=== PATIENT | male | born 1955 | race African-American/Black ===

== ENCOUNTER 2019-02-27 18:32 | Inpatient (IN) | payer MEDICAID ==
[~2019-02-27] VITALS: Ht 193 cm; Wt 117.3 kg
[2019-02-27] MEDS ORDERED: SODIUM CHLORIDE 0.9% 1,000 ML IV ONE (20:06)
[2019-02-27 20:16] LABS: CLARITY URINE CLEAR (CLEAR); COLOR URINE YELLOW (YELLOW); KETONES URINE 4+ (NEGATIVE); LEUKOCYTE ESTERASE URINE NEGATIVE (NEGATIVE); NITRITE URINE NEGATIVE (NEGATIVE); OCCULT BLOOD URINE NEGATIVE (NEGATIVE); PROTEIN URINE TRACE (NEGATIVE); SPECIFIC GRAVITY URINE 1.042 (1.005-1.030); UROBILINOGEN URINE 0.2 E.U./dL (0.2-1.0)
[2019-02-27 20:32] LABS: *AMPHETAMINES SCREEN URINE NEGATIVE (NEGATIVE); *BARBITURATES SCREEN URINE NEGATIVE (NEGATIVE); *BENZODIAZEPINES SCREEN URINE NEGATIVE (NEGATIVE); *COCAINE SCREEN URINE NEGATIVE (NEGATIVE); METHADONE URINE SCREEN NEGATIVE (NEGATIVE)
[2019-02-27 20:33] LABS: CANNABINOID URINE SCREEN NEGATIVE (NEGATIVE); OPIATES URINE SCREEN NEGATIVE (NEGATIVE); PHENCYCLIDINE URINE SCREEN NEGATIVE (NEGATIVE)
[2019-02-27 20:39] LABS: CHLORIDE 102 mEq/L (98-107)
[2019-02-27 20:40] LABS: INR 1.3; PROTHROMBIN TIME 12.8 sec (9.6-11.0)
[2019-02-27 20:43] LABS: ETHANOL BLOOD < 10 mg/dL
[2019-02-27 21:40] LABS: BASOPHILS % 0.7 % (0.0-2.0); EOSINOPHILS % 0.8 % (0.0-5.0); HEMATOCRIT. 43.1 % (42.0-52.0); HEMOGLOBIN. 14.4 g/dL (14.0-18.0); MEAN CORPUSCULAR HEMOGLOBIN 28.5 pg (28.0-32.0); MEAN CORPUSCULAR VOLUME 85.7 fL (80.0-94.0); MEAN PLATELET VOLUME 9.9 fl (7.4-10.4); MONOCYTES % 10.3 % (2.0-8.0); NEUTROPHILS % 54.2 % (40.0-76.0); PLATELET 251 x1000/uL (130-400); RED BLOOD CELL COUNT 5.03 mill/uL (4.7-6.1); RED CELL DISTRIBUTION WIDTH 13.7 % (11.6-14.6)
[2019-02-27] MEDS ORDERED: CLONIDINE 0.1MG TABLET PO PRN (23:45)
[2019-02-27] MEDS ORDERED: ACETAMINOPHEN 325MG TABLET PO PRN (23:45)
[2019-02-27] MEDS ORDERED: DOCUSATE SODIUM 100MG CAPSULE PO PRN (23:45)
[2019-02-27] MEDS ORDERED: GUAIFENESIN 200MG/10ML SUGAR FREE UDC PO PRN (23:45)
[2019-02-27] MEDS ORDERED: ENOXAPARIN 40MG/0.4ML SYR SUBCUT SCH (23:45)
[2019-02-27] MEDS ORDERED: HYDROCODONE/ACETAMINOPHEN 5/325MG TABLET PO PRN (23:45)
[2019-02-27] MEDS ORDERED: MAGNESIUM/ALUMINUM HYDROXIDE/SIMETHICONE 30ML UDC PO PRN (23:45)
[2019-02-27] MEDS ORDERED: ONDANSETRON HCL 4MG/2ML INJ IV PRN (23:45)
[2019-02-28] VITALS (7 sets, daily range): BP systolic 148–193; BP diastolic 58–106
[2019-02-28] MEDS ORDERED: DEXTROSE 50% WATER 50ML SYRINGE IV PRN (01:00)
[2019-02-28] MEDS: BLOOD SUGAR DIAGNOSTIC STRIP TEST SCH ×5 (01:13→21:54)
[2019-02-28] MEDS: INSULIN LISPRO 100 UNITS/ML SUBCUT SCH ×5 (01:29→21:58)
[2019-02-28] MEDS: SODIUM CHLORIDE 0.45% 1,000 ML IV SCH (01:34)
[2019-02-28] MEDS ORDERED: HYDRALAZINE HCL 10MG TABLET PO SCH (06:00)
[2019-02-28 06:36] LABS: BASOPHILS % 0.7 % (0.0-2.0); EOSINOPHILS % 1.7 % (0.0-5.0); HEMATOCRIT. 38.1 % (42.0-52.0); LYMPHOCYTES % 40.8 % (20.0-50.0); MEAN CORPUSCULAR HEMOGLOBIN 28.6 pg (28.0-32.0); MEAN CORPUSCULAR VOLUME 83.5 fL (80.0-94.0); MEAN PLATELET VOLUME 9.7 fl (7.4-10.4); MONOCYTES % 11.1 % (2.0-8.0); NEUTROPHILS % 45.7 % (40.0-76.0); PLATELET 270 x1000/uL (130-400); RED BLOOD CELL COUNT 4.56 mill/uL (4.7-6.1); RED CELL DISTRIBUTION WIDTH 13.7 % (11.6-14.6)
[2019-02-28 07:50] LABS: CHLORIDE 109 mEq/L (98-107)
[2019-02-28] MEDS: AMLODIPINE 10MG TABLET PO SCH (09:07)
[2019-02-28] MEDS: ENOXAPARIN 30MG/0.3ML SYR SUBCUT SCH ×2 (09:08→21:56)
[2019-02-28] MEDS ORDERED: POTASSIUM CHLORIDE 20MEQ TABLET SR PO NR (09:30)
[2019-02-28] MEDS: HYDRALAZINE HCL 25MG TABLET PO SCH ×2 (15:23→21:56)
[2019-03-01] VITALS (8 sets, daily range): BP systolic 148–174; BP diastolic 72–98
[2019-03-01] MEDS: SODIUM CHLORIDE 0.45% 1,000 ML IV SCH ×4 (03:48→16:18)
[2019-03-01] MEDS: BLOOD SUGAR DIAGNOSTIC STRIP TEST SCH ×4 (06:04→21:10)
[2019-03-01] MEDS: HYDRALAZINE HCL 25MG TABLET PO SCH ×3 (06:10→21:32)
[2019-03-01 06:14] LABS: EOSINOPHILS % 2.1 % (0.0-5.0); HEMATOCRIT. 39.3 % (42.0-52.0); HEMOGLOBIN. 13.3 g/dL (14.0-18.0); LYMPHOCYTES % 43.4 % (20.0-50.0); MEAN CORPUSCULAR HEMOGLOBIN 28.7 pg (28.0-32.0); MEAN CORPUSCULAR VOLUME 84.8 fL (80.0-94.0); MEAN PLATELET VOLUME 9.7 fl (7.4-10.4); MONOCYTES % 10.9 % (2.0-8.0); NEUTROPHILS % 42.6 % (40.0-76.0); PLATELET 244 x1000/uL (130-400); RED BLOOD CELL COUNT 4.64 mill/uL (4.7-6.1)
[2019-03-01 08:00] LABS: CHLORIDE 106 mEq/L (98-107)
[2019-03-01] MEDS: ENOXAPARIN 30MG/0.3ML SYR SUBCUT SCH ×2 (08:43→21:33)
[2019-03-01] MEDS: AMLODIPINE 10MG TABLET PO SCH (08:43)
[2019-03-01] MEDS: INSULIN LISPRO 100 UNITS/ML SUBCUT SCH ×4 (08:44→21:45)
[2019-03-01] MEDS: CLOPIDOGREL 75MG TABLET PO SCH (10:30)
[2019-03-01] MEDS ORDERED: INSULIN LISPRO 100 UNITS/ML SUBCUT NR (13:15)
[2019-03-01] MEDS ORDERED: ATORVASTATIN CALCIUM 40MG TABLET PO SCH (21:00)
[2019-03-02] VITALS: BP 187/99
[2019-03-02 04:00] VITALS: BP 154/91
[2019-03-02] MEDS: BLOOD SUGAR DIAGNOSTIC STRIP TEST SCH ×2 (06:40→12:11)
[2019-03-02] MEDS: HYDRALAZINE HCL 25MG TABLET PO SCH ×2 (06:51→13:39)
[2019-03-02] MEDS: SODIUM CHLORIDE 0.45% 1,000 ML IV SCH (06:52)
[2019-03-02 08:00] VITALS: BP 144/92
[2019-03-02] MEDS: AMLODIPINE 10MG TABLET PO SCH (08:32)
[2019-03-02] MEDS: ENOXAPARIN 30MG/0.3ML SYR SUBCUT SCH (08:32)
[2019-03-02] MEDS: CLOPIDOGREL 75MG TABLET PO SCH (08:32)
[2019-03-02] MEDS: INSULIN LISPRO 100 UNITS/ML SUBCUT SCH ×2 (08:35→13:40)
[2019-03-02 12:00] VITALS: BP 146/64
[2019-03-02 12:14] VITALS: BP 146/64
== END 2019-03-02 15:12 | disposition home or self-care (01) | DRG 45 ==
LOC: ER 18:32 → EDBEDREQTM 22:53 → EDBEDREQ 22:53 → ENRESERV 23:15 → SUPCPDRO 23:32 → 7WST 02-28 00:29
PROVIDERS: ADMIT Hospitalist; ATTEND Hospitalist
DX: I63.9 Cerebral infarction, unspecified (principal); G93.40 Encephalopathy, unspecified; E11.65 Type 2 diabetes mellitus with hyperglycemia; I69.351 Hemiplegia and hemiparesis following cerebral infarction affecting right dominant side; I10 Essential (primary) hypertension
CPT/HCPCS: 36415; 70551; 71045; 80305; 80320; 82962; 83036; 83735; 84484; 92523; 92610; 93005; 93880; 93970; 96372; 97116; 97162; 97166; 99285; J1650; J1815; J7030; G0480

== ENCOUNTER 2019-03-18 00:43 | Inpatient (IN) | payer MEDICAID ==
[~2019-03-18] VITALS: Ht 180.3 cm; Wt 122.2 kg
[2019-03-18] MEDS ORDERED: ONDANSETRON HCL 4MG/2ML INJ IV STA (01:17)
[2019-03-18 01:53] LABS: BASOPHILS % 0.5 % (0.0-2.0); EOSINOPHILS % 0.1 % (0.0-5.0); HEMATOCRIT. 45.3 % (42.0-52.0); HEMOGLOBIN. 15.1 g/dL (14.0-18.0); LYMPHOCYTES % 12.5 % (20.0-50.0); MEAN CORPUSCULAR HEMOGLOBIN 28.3 pg (28.0-32.0); MEAN CORPUSCULAR VOLUME 85.1 fL (80.0-94.0); MEAN PLATELET VOLUME 9.8 fl (7.4-10.4); MONOCYTES % 8.7 % (2.0-8.0); NEUTROPHILS % 78.2 % (40.0-76.0); PLATELET 257 x1000/uL (130-400); RED BLOOD CELL COUNT 5.33 mill/uL (4.7-6.1); RED CELL DISTRIBUTION WIDTH 14.1 % (11.6-14.6)
[2019-03-18 02:00] LABS: CHLORIDE 105 mEq/L (98-107); INR 1.1; PROTHROMBIN TIME 11.4 sec (9.6-11.0)
[2019-03-18 02:09] LABS: CREATINE KINASE 79 IU/L (39-308)
[2019-03-18] MEDS ORDERED: INSULIN REGULAR (HUMULIN R) 300UNITS/3ML SUBCUT ONE (03:00)
[2019-03-18] MEDS ORDERED: DOCUSATE SODIUM 100MG CAPSULE PO PRN (06:45)
[2019-03-18] MEDS ORDERED: GUAIFENESIN 200MG/10ML SUGAR FREE UDC PO PRN (06:45)
[2019-03-18] MEDS ORDERED: DIPHENHYDRAMINE 50MG/ML VIAL IV PRN (06:45)
[2019-03-18] MEDS ORDERED: HYDROCODONE/ACETAMINOPHEN 10/325MG TABLET PO PRN (06:45)
[2019-03-18] MEDS ORDERED: IPRATROPIUM/ALBUTEROL 0.5-3(2.5)MG/3ML NEB INH PRN (06:45)
[2019-03-18] MEDS ORDERED: LORAZEPAM 2MG/ML CPJ IV PRN (06:45)
[2019-03-18] MEDS ORDERED: ACETAMINOPHEN 325MG TABLET PO PRN (06:45)
[2019-03-18] MEDS ORDERED: HYDROMORPHONE HCL/PF 2MG/ML CPJ IV PRN (06:45)
[2019-03-18] MEDS ORDERED: DEXTROSE 50% WATER 50ML SYRINGE IV PRN (06:45)
[2019-03-18] MEDS ORDERED: MAGNESIUM/ALUMINUM HYDROXIDE/SIMETHICONE 30ML UDC PO PRN (06:45)
[2019-03-18] MEDS: HYDRALAZINE 20MG/ML VIAL IV PRN (07:35)
[2019-03-18 08:53] VITALS: BP 140/89
[2019-03-18] MEDS ORDERED: NA PHOS,M-B/NA PHOS,DI-BA ENEMA 118ML PR PRN (09:00)
[2019-03-18] MEDS: ASPIRIN 81MG EC TABLET PO SCH (09:00)
[2019-03-18] MEDS: ENOXAPARIN 30MG/0.3ML SYR SUBCUT SCH ×2 (09:15→21:02)
[2019-03-18] MEDS: BLOOD SUGAR DIAGNOSTIC STRIP TEST SCH ×3 (11:30→21:04)
[2019-03-18 11:33] VITALS: BP 155/85
[2019-03-18] MEDS: INSULIN LISPRO 100 UNITS/ML SUBCUT SCH ×4 (12:20→21:05)
[2019-03-18] MEDS: SODIUM CHLORIDE 0.9% INJ 3ML FLUSH IVF SCH ×2 (13:27→21:04)
[2019-03-18] MEDS ORDERED: METOCLOPRAMIDE HCL 10MG/2ML VIAL IV PRN (13:30)
[2019-03-18] MEDS: ONDANSETRON HCL 4MG/2ML INJ IV PRN (13:35)
[2019-03-18 14:00] VITALS: BP 152/90
[2019-03-18] MEDS: DEXT 5%/0.45% NACL 1000ML 1,000 ML IV SCH (14:13)
[2019-03-18 16:00] VITALS: BP 147/105
[2019-03-18 16:09] LABS: HEMATOCRIT 44.8 % (42.0-52.0); HEMOGLOBIN 15.4 g/dL (14.0-18.0)
[2019-03-18 16:23] LABS: CREATINE KINASE 242 IU/L (39-308)
[2019-03-18 16:25] LABS: CREATINE KINASE MB FRACTION 1.3 ng/mL (0.5-3.6)
[2019-03-18] MEDS ORDERED: POTASSIUM CHLORIDE 20MEQ TABLET SR PO NR ×2 (17:27→20:00)
[2019-03-18 18:00] VITALS: BP 167/98
[2019-03-18] MEDS: PANTOPRAZOLE SODIUM 40 MG/VIAL IV SCH (19:29)
[2019-03-18 20:00] VITALS: BP 150/96
[2019-03-18] MEDS: ATORVASTATIN CALCIUM 40MG TABLET PO SCH (21:15)
[2019-03-19] VITALS (10 sets, daily range): BP systolic 123–158; BP diastolic 53–103
[2019-03-19 00:12] LABS: CREATINE KINASE MB FRACTION 1.6 ng/mL (0.5-3.6)
[2019-03-19] MEDS: CLONIDINE 0.1MG TABLET PO PRN (00:15)
[2019-03-19] MEDS: BLOOD SUGAR DIAGNOSTIC STRIP TEST SCH ×4 (05:33→21:51)
[2019-03-19] MEDS: SODIUM CHLORIDE 0.9% INJ 3ML FLUSH IVF SCH ×3 (05:33→21:51)
[2019-03-19] MEDS: DEXT 5%/0.45% NACL 1000ML 1,000 ML IV SCH ×2 (05:34→16:30)
[2019-03-19] MEDS: INSULIN LISPRO 100 UNITS/ML SUBCUT SCH ×4 (05:40→21:52)
[2019-03-19 06:33] LABS: BASOPHILS % 0.5 % (0.0-2.0); EOSINOPHILS % 0.4 % (0.0-5.0); HEMATOCRIT. 42.2 % (42.0-52.0); HEMOGLOBIN. 14.4 g/dL (14.0-18.0); MEAN CORPUSCULAR HEMOGLOBIN 28.4 pg (28.0-32.0); MEAN CORPUSCULAR VOLUME 83.3 fL (80.0-94.0); MEAN PLATELET VOLUME 9.7 fl (7.4-10.4); MONOCYTES % 12.5 % (2.0-8.0); NEUTROPHILS % 61.6 % (40.0-76.0); PLATELET 244 x1000/uL (130-400); RED BLOOD CELL COUNT 5.07 mill/uL (4.7-6.1); RED CELL DISTRIBUTION WIDTH 14.4 % (11.6-14.6)
[2019-03-19 07:26] LABS: CHLORIDE 111 mEq/L (98-107)
[2019-03-19 07:48] LABS: LDL CHOLESTEROL 117 mg/dL (5-100)
[2019-03-19 07:49] LABS: HDL CHOLESTEROL 41 mg/dL (40-59)
[2019-03-19] MEDS: PANTOPRAZOLE SODIUM 40 MG/VIAL IV SCH ×2 (08:38→21:50)
[2019-03-19] MEDS: ASPIRIN 81MG EC TABLET PO SCH (08:39)
[2019-03-19] MEDS: ENOXAPARIN 30MG/0.3ML SYR SUBCUT SCH ×2 (08:39→21:00)
[2019-03-19] MEDS ORDERED: POTASSIUM CHLORIDE 20MEQ TABLET SR PO NR (09:00)
[2019-03-19] MEDS ORDERED: POTASSIUM CHLORIDE INJ 40 MEQ in DEXT 5% WATER 250 ML IV SCH (11:00)
[2019-03-19] MEDS: ONDANSETRON HCL 4MG/2ML INJ IV PRN (11:32)
[2019-03-19] MEDS: ATORVASTATIN CALCIUM 40MG TABLET PO SCH (21:00)
[2019-03-20] VITALS (14 sets, daily range): BP systolic 132–162; BP diastolic 77–119
[2019-03-20] MEDS: HYDRALAZINE 20MG/ML VIAL IV PRN ×2 (04:41→14:49)
[2019-03-20] MEDS: SODIUM CHLORIDE 0.9% INJ 3ML FLUSH IVF SCH ×3 (06:18→21:43)
[2019-03-20] MEDS: BLOOD SUGAR DIAGNOSTIC STRIP TEST SCH ×4 (06:18→21:38)
[2019-03-20] MEDS: DEXT 5%/0.45% NACL 1000ML 1,000 ML IV SCH ×2 (06:19→21:42)
[2019-03-20 07:26] LABS: HEMATOCRIT. 43.7 % (42.0-52.0); HEMOGLOBIN. 14.7 g/dL (14.0-18.0); MEAN CORPUSCULAR HEMOGLOBIN 28.6 pg (28.0-32.0); MEAN CORPUSCULAR VOLUME 84.9 fL (80.0-94.0); RED BLOOD CELL COUNT 5.15 mill/uL (4.7-6.1); RED CELL DISTRIBUTION WIDTH 14.8 % (11.6-14.6)
[2019-03-20 07:28] LABS: CHLORIDE 111 mEq/L (98-107)
[2019-03-20] MEDS: ENOXAPARIN 30MG/0.3ML SYR SUBCUT SCH (09:00)
[2019-03-20] MEDS: ASPIRIN 81MG EC TABLET PO SCH (09:00)
[2019-03-20] MEDS: PANTOPRAZOLE SODIUM 40 MG/VIAL IV SCH ×2 (09:04→21:42)
[2019-03-20] MEDS: INSULIN LISPRO 100 UNITS/ML SUBCUT SCH ×4 (09:05→21:43)
[2019-03-20] MEDS ORDERED: POTASSIUM CHLORIDE INJ 40 MEQ in DEXT 5% WATER 250 ML IV NR (14:30)
[2019-03-20] MEDS ORDERED: ATOR40TA70 MT (17:16)
[2019-03-20] MEDS ORDERED: OMEP20CA5 MT (17:16)
[2019-03-20] MEDS ORDERED: NPH,100V SQ (17:16)
[2019-03-20] MEDS ORDERED: IPRA42SP BOTHNSTRLS (17:16)
[2019-03-20] MEDS ORDERED: INSU100V3 SUBCUT (17:16)
[2019-03-20] MEDS ORDERED: HYDR-4134 MT (17:16)
[2019-03-20] MEDS ORDERED: ASPI-1158 MT (17:16)
[2019-03-20] MEDS ORDERED: ATEN100T MT (17:16)
[2019-03-20] MEDS ORDERED: ATOR-2 MT (17:16)
[2019-03-20] MEDS ORDERED: GABA-531 MT (17:16)
[2019-03-20] MEDS ORDERED: FURO20TA4 MT (17:16)
[2019-03-20] MEDS ORDERED: CLOP75TA33 MT (17:16)
[2019-03-20] MEDS ORDERED: LORA10TA7 MT (17:16)
[2019-03-20] MEDS ORDERED: AMLO10TA80 MT (17:16)
[2019-03-20] MEDS ORDERED: LOSA50TA41 MT (17:16)
[2019-03-20] MEDS ORDERED: OR220 MT (17:16)
[2019-03-20] MEDS ORDERED: METOPROLOL TARTRATE 50MG TABLET PO SCH (21:00)
[2019-03-20] MEDS: ATORVASTATIN CALCIUM 40MG TABLET PO SCH (21:36)
[2019-03-20] MEDS: METOPROLOL TARTRATE 25MG TABLET PO SCH (21:38)
[2019-03-21] VITALS (14 sets, daily range): BP systolic 137–175; BP diastolic 80–106
[2019-03-21] MEDS: HYDRALAZINE 20MG/ML VIAL IV PRN (04:37)
[2019-03-21] MEDS: BLOOD SUGAR DIAGNOSTIC STRIP TEST SCH ×3 (05:38→18:34)
[2019-03-21] MEDS: SODIUM CHLORIDE 0.9% INJ 3ML FLUSH IVF SCH ×3 (05:39→22:40)
[2019-03-21 06:21] LABS: CHLORIDE 111 mEq/L (98-107)
[2019-03-21] MEDS: INSULIN LISPRO 100 UNITS/ML SUBCUT SCH ×3 (06:31→18:32)
[2019-03-21 06:33] LABS: BASOPHILS % 0.1 % (0.0-2.0); HEMATOCRIT. 42.5 % (42.0-52.0); HEMOGLOBIN. 14.2 g/dL (14.0-18.0); LYMPHOCYTES % 7.9 % (20.0-50.0); MEAN CORPUSCULAR HEMOGLOBIN 28.1 pg (28.0-32.0); MEAN CORPUSCULAR VOLUME 84.1 fL (80.0-94.0); MONOCYTES % 8.7 % (2.0-8.0); NEUTROPHILS % 83.3 % (40.0-76.0); PLATELET 221 x1000/uL (130-400); RED BLOOD CELL COUNT 5.05 mill/uL (4.7-6.1); RED CELL DISTRIBUTION WIDTH 14.7 % (11.6-14.6)
[2019-03-21] MEDS: PANTOPRAZOLE SODIUM 40 MG/VIAL IV SCH ×2 (08:57→20:46)
[2019-03-21] MEDS: METOPROLOL TARTRATE 25MG TABLET PO SCH ×2 (08:58→20:47)
[2019-03-21] MEDS: ASPIRIN 81MG EC TABLET PO SCH (08:58)
[2019-03-21] MEDS ORDERED: POTASSIUM CHLORIDE INJ 40 MEQ in DEXT 5% WATER 250 ML IV SCH (10:00)
[2019-03-21] MEDS: DEXT 5%/0.45% NACL 1000ML 1,000 ML IV SCH (10:28)
[2019-03-21] MEDS ORDERED: BLOOD SUGAR DIAGNOSTIC STRIP TEST SCH (11:00)
[2019-03-21 12:29] LABS: CLARITY URINE CLEAR (CLEAR); COLOR URINE YELLOW (YELLOW); KETONES URINE 3+ (NEGATIVE); LEUKOCYTE ESTERASE URINE NEGATIVE (NEGATIVE); NITRITE URINE NEGATIVE (NEGATIVE); OCCULT BLOOD URINE NEGATIVE (NEGATIVE); PROTEIN URINE TRACE (NEGATIVE); SPECIFIC GRAVITY URINE 1.043 (1.005-1.030)
[2019-03-21] MEDS: PIPERACILLIN/TAZ 3.375G PREMIX 50 ML IV SCH ×2 (12:45→18:34)
[2019-03-21] MEDS ORDERED: VANCOMYCIN 1,500 MG in DEXT 5% WATER 250 ML IV SCH (13:00)
[2019-03-21] MEDS ORDERED: VANCOMYCIN 2,000 MG in DEXT 5% WATER 500 ML IV NR ×2 (14:00→16:00)
[2019-03-21] MEDS: ATORVASTATIN CALCIUM 40MG TABLET PO SCH (20:46)
[2019-03-21] MEDS: INSULIN GLARGINE UD 100 UNITS/ML SYR SUBCUT SCH (22:43)
[2019-03-22] VITALS (13 sets, daily range): BP systolic 137–186; BP diastolic 71–96
[2019-03-22] MEDS: BLOOD SUGAR DIAGNOSTIC STRIP TEST SCH ×5 (00:29→23:43)
[2019-03-22] MEDS: PIPERACILLIN/TAZ 3.375G PREMIX 50 ML IV SCH ×5 (00:29→23:51)
[2019-03-22] MEDS: INSULIN LISPRO 100 UNITS/ML SUBCUT SCH ×5 (00:40→23:52)
[2019-03-22] MEDS ORDERED: VANCOMYCIN 1,750 MG in DEXT 5% WATER 500 ML IV SCH (02:00)
[2019-03-22] MEDS: HYDRALAZINE 20MG/ML VIAL IV PRN (04:21)
[2019-03-22] MEDS: VANCOMYCIN 1,750 MG in DEXT 5% WATER 500 ML IV SCH ×2 (04:21→15:40)
[2019-03-22] MEDS: SODIUM CHLORIDE 0.9% INJ 3ML FLUSH IVF SCH ×3 (05:45→21:20)
[2019-03-22] MEDS: DEXT 5%/0.45% NACL 1000ML 1,000 ML IV SCH ×3 (08:43→23:51)
[2019-03-22] MEDS: ASPIRIN 81MG EC TABLET PO SCH (08:43)
[2019-03-22] MEDS: METOPROLOL TARTRATE 25MG TABLET PO SCH ×2 (08:43→21:20)
[2019-03-22] MEDS: PANTOPRAZOLE SODIUM 40 MG/VIAL IV SCH ×2 (08:43→21:20)
[2019-03-22] MEDS: INSULIN GLARGINE UD 100 UNITS/ML SYR SUBCUT SCH ×2 (09:22→21:22)
[2019-03-22] MEDS: METOCLOPRAMIDE HCL 10MG/2ML VIAL IV SCH ×3 (12:14→23:51)
[2019-03-22 12:15] LABS: HEMATOCRIT. 42.1 % (42.0-52.0); HEMOGLOBIN. 13.9 g/dL (14.0-18.0); MEAN CORPUSCULAR HEMOGLOBIN 28.3 pg (28.0-32.0); MEAN CORPUSCULAR VOLUME 85.5 fL (80.0-94.0); RED BLOOD CELL COUNT 4.92 mill/uL (4.7-6.1); RED CELL DISTRIBUTION WIDTH 14.7 % (11.6-14.6)
[2019-03-22 12:42] LABS: CHLORIDE 109 mEq/L (98-107)
[2019-03-22 13:12] LABS: PLATELET 160 x1000/uL (130-400); PLATELET ESTIMATE NORMAL
[2019-03-22] MEDS ORDERED: POTASSIUM CHLORIDE INJ 40 MEQ in DEXT 5% WATER 500 ML IV NR (15:00)
[2019-03-22] MEDS: ATORVASTATIN CALCIUM 40MG TABLET PO SCH (21:20)
[2019-03-23] VITALS (14 sets, daily range): BP systolic 104–172; BP diastolic 58–99
[2019-03-23] MEDS: VANCOMYCIN 1,750 MG in DEXT 5% WATER 500 ML IV SCH (04:43)
[2019-03-23] MEDS: HYDRALAZINE 20MG/ML VIAL IV PRN (04:53)
[2019-03-23] MEDS: PIPERACILLIN/TAZ 3.375G PREMIX 50 ML IV SCH ×4 (06:50→23:11)
[2019-03-23] MEDS: CLONIDINE 0.1MG TABLET PO PRN (06:50)
[2019-03-23] MEDS: METOCLOPRAMIDE HCL 10MG/2ML VIAL IV SCH ×4 (06:50→23:47)
[2019-03-23] MEDS: BLOOD SUGAR DIAGNOSTIC STRIP TEST SCH ×3 (06:51→17:54)
[2019-03-23] MEDS: INSULIN LISPRO 100 UNITS/ML SUBCUT SCH ×3 (06:51→18:06)
[2019-03-23] MEDS: SODIUM CHLORIDE 0.9% INJ 3ML FLUSH IVF SCH ×3 (06:51→21:41)
[2019-03-23 06:57] LABS: BASOPHILS % 0.4 % (0.0-2.0); EOSINOPHILS % 3.8 % (0.0-5.0); HEMATOCRIT. 36.6 % (42.0-52.0); LYMPHOCYTES % 28.5 % (20.0-50.0); MEAN CORPUSCULAR HEMOGLOBIN 28.6 pg (28.0-32.0); MEAN CORPUSCULAR VOLUME 87.3 fL (80.0-94.0); MEAN PLATELET VOLUME 10.7 fl (7.4-10.4); MONOCYTES % 13.6 % (2.0-8.0); NEUTROPHILS % 53.7 % (40.0-76.0); PLATELET 170 x1000/uL (130-400); RED BLOOD CELL COUNT 4.19 mill/uL (4.7-6.1); RED CELL DISTRIBUTION WIDTH 14.7 % (11.6-14.6)
[2019-03-23 07:15] LABS: CHLORIDE 99 mEq/L (98-107)
[2019-03-23] MEDS: METOPROLOL TARTRATE 25MG TABLET PO SCH ×2 (08:47→21:41)
[2019-03-23] MEDS: ASPIRIN 81MG EC TABLET PO SCH (08:47)
[2019-03-23] MEDS: PANTOPRAZOLE SODIUM 40 MG/VIAL IV SCH ×2 (10:11→20:50)
[2019-03-23] MEDS: INSULIN GLARGINE UD 100 UNITS/ML SYR SUBCUT SCH ×2 (10:12→21:47)
[2019-03-23] MEDS: DEXT 5%/0.45% NACL 1000ML 1,000 ML IV SCH (15:36)
[2019-03-23] MEDS: VANCOMYCIN 1250MG in DEXTROSE 5% WATER 250ML IV SCH ×2 (15:36→23:47)
[2019-03-23 20:40] LABS: CHLORIDE 104 mEq/L (98-107)
[2019-03-23] MEDS: ATORVASTATIN CALCIUM 40MG TABLET PO SCH (21:40)
[2019-03-23] MEDS ORDERED: INSULIN GLARGINE UD 100 UNITS/ML SYR SUBCUT NR (22:00)
[2019-03-23] MEDS ORDERED: POTASSIUM CHLORIDE INJ 40 MEQ in DEXT 5% WATER 250 ML IV NR (23:45)
[2019-03-24] VITALS (13 sets, daily range): BP systolic 124–163; BP diastolic 64–96
[2019-03-24] MEDS: INSULIN LISPRO 100 UNITS/ML SUBCUT SCH ×4 (00:18→17:10)
[2019-03-24] MEDS: DEXT 5%/0.45% NACL 1000ML 1,000 ML IV SCH ×2 (03:08→17:03)
[2019-03-24] MEDS: CLONIDINE 0.1MG TABLET PO PRN ×3 (03:25→17:34)
[2019-03-24] MEDS: PIPERACILLIN/TAZ 3.375G PREMIX 50 ML IV SCH ×4 (05:34→23:28)
[2019-03-24] MEDS: METOCLOPRAMIDE HCL 10MG/2ML VIAL IV SCH ×4 (05:38→23:28)
[2019-03-24] MEDS: SODIUM CHLORIDE 0.9% INJ 3ML FLUSH IVF SCH ×3 (05:39→21:15)
[2019-03-24] MEDS: BLOOD SUGAR DIAGNOSTIC STRIP TEST SCH ×4 (06:00→17:02)
[2019-03-24] MEDS: VANCOMYCIN 1250MG in DEXTROSE 5% WATER 250ML IV SCH ×2 (07:39→15:08)
[2019-03-24] MEDS: PANTOPRAZOLE SODIUM 40 MG/VIAL IV SCH ×2 (08:02→20:31)
[2019-03-24] MEDS: METOPROLOL TARTRATE 25MG TABLET PO SCH ×2 (08:03→21:16)
[2019-03-24] MEDS: ASPIRIN 81MG EC TABLET PO SCH (08:03)
[2019-03-24] MEDS: INSULIN GLARGINE UD 100 UNITS/ML SYR SUBCUT SCH ×2 (09:40→21:15)
[2019-03-24 12:33] LABS: CHLORIDE 101 mEq/L (98-107)
[2019-03-24] MEDS ORDERED: POTASSIUM CHLORIDE INJ 40 MEQ in DEXT 5% WATER 500 ML IV SCH (15:00)
[2019-03-24] MEDS: LACTULOSE 20G/30ML UDC PO PRN (15:14)
[2019-03-24] MEDS: ATORVASTATIN CALCIUM 40MG TABLET PO SCH (21:15)
[2019-03-25] VITALS (12 sets, daily range): BP systolic 121–170; BP diastolic 68–97
[2019-03-25] MEDS: INSULIN LISPRO 100 UNITS/ML SUBCUT SCH ×4 (00:21→17:16)
[2019-03-25] MEDS: VANCOMYCIN 1250MG in DEXTROSE 5% WATER 250ML IV SCH ×3 (00:40→16:53)
[2019-03-25] MEDS: CLONIDINE 0.1MG TABLET PO PRN (02:17)
[2019-03-25] MEDS: BLOOD SUGAR DIAGNOSTIC STRIP TEST SCH ×4 (06:00→17:12)
[2019-03-25] MEDS: METOCLOPRAMIDE HCL 10MG/2ML VIAL IV SCH ×4 (06:15→23:47)
[2019-03-25] MEDS: PIPERACILLIN/TAZ 3.375G PREMIX 50 ML IV SCH ×4 (06:15→23:47)
[2019-03-25] MEDS: DEXT 5%/0.45% NACL 1000ML 1,000 ML IV SCH ×2 (06:16→17:12)
[2019-03-25] MEDS: SODIUM CHLORIDE 0.9% INJ 3ML FLUSH IVF SCH ×3 (06:16→21:35)
[2019-03-25] MEDS: HYDRALAZINE 20MG/ML VIAL IV PRN ×2 (06:18→11:29)
[2019-03-25 06:57] LABS: CHLORIDE 100 mEq/L (98-107)
[2019-03-25 07:11] LABS: BASOPHILS % 0.7 % (0.0-2.0); EOSINOPHILS % 4.3 % (0.0-5.0); HEMATOCRIT. 38.4 % (42.0-52.0); LYMPHOCYTES % 27.9 % (20.0-50.0); MEAN CORPUSCULAR HEMOGLOBIN 28.7 pg (28.0-32.0); MEAN CORPUSCULAR VOLUME 84.9 fL (80.0-94.0); MEAN PLATELET VOLUME 10.2 fl (7.4-10.4); MONOCYTES % 14.1 % (2.0-8.0); PLATELET 198 x1000/uL (130-400); RED BLOOD CELL COUNT 4.53 mill/uL (4.7-6.1)
[2019-03-25] MEDS: PANTOPRAZOLE SODIUM 40 MG/VIAL IV SCH ×2 (08:57→20:16)
[2019-03-25] MEDS: ASPIRIN 81MG EC TABLET PO SCH (08:58)
[2019-03-25] MEDS: METOPROLOL TARTRATE 25MG TABLET PO SCH ×2 (08:58→21:35)
[2019-03-25] MEDS: LACTULOSE 20G/30ML UDC PO PRN (08:58)
[2019-03-25] MEDS: INSULIN GLARGINE UD 100 UNITS/ML SYR SUBCUT SCH ×2 (09:26→21:37)
[2019-03-25] MEDS ORDERED: POTASSIUM CHLORIDE INJ 40 MEQ in DEXT 5% WATER 250 ML IV SCH (12:00)
[2019-03-25] MEDS: ATORVASTATIN CALCIUM 40MG TABLET PO SCH (21:34)
[2019-03-26] VITALS (10 sets, daily range): BP systolic 124–169; BP diastolic 75–99
[2019-03-26] MEDS: INSULIN LISPRO 100 UNITS/ML SUBCUT SCH ×4 (00:24→17:56)
[2019-03-26] MEDS: VANCOMYCIN 1250MG in DEXTROSE 5% WATER 250ML IV SCH ×3 (00:45→16:52)
[2019-03-26] MEDS: DEXT 5%/0.45% NACL 1000ML 1,000 ML IV SCH (02:31)
[2019-03-26] MEDS: SODIUM CHLORIDE 0.9% INJ 3ML FLUSH IVF SCH ×3 (05:59→21:04)
[2019-03-26] MEDS: BLOOD SUGAR DIAGNOSTIC STRIP TEST SCH ×4 (06:00→17:54)
[2019-03-26 06:02] LABS: BASOPHILS % 0.3 % (0.0-2.0); EOSINOPHILS % 2.1 % (0.0-5.0); HEMATOCRIT. 39.3 % (42.0-52.0); HEMOGLOBIN. 13.2 g/dL (14.0-18.0); LYMPHOCYTES % 23.6 % (20.0-50.0); MEAN CORPUSCULAR HEMOGLOBIN 28.5 pg (28.0-32.0); MEAN CORPUSCULAR VOLUME 84.9 fL (80.0-94.0); MEAN PLATELET VOLUME 9.8 fl (7.4-10.4); MONOCYTES % 14.6 % (2.0-8.0); NEUTROPHILS % 59.4 % (40.0-76.0); PLATELET 204 x1000/uL (130-400); RED BLOOD CELL COUNT 4.63 mill/uL (4.7-6.1)
[2019-03-26 06:09] LABS: CHLORIDE 101 mEq/L (98-107)
[2019-03-26] MEDS: PIPERACILLIN/TAZ 3.375G PREMIX 50 ML IV SCH ×3 (06:37→16:51)
[2019-03-26] MEDS: HYDRALAZINE 20MG/ML VIAL IV PRN (06:37)
[2019-03-26] MEDS: METOCLOPRAMIDE HCL 10MG/2ML VIAL IV SCH ×3 (06:37→16:54)
[2019-03-26] MEDS ORDERED: POTASSIUM CHLORIDE INJ 40 MEQ in DEXT 5% WATER 250 ML IV NR ×2 (08:00→20:00)
[2019-03-26] MEDS: PANTOPRAZOLE SODIUM 40 MG/VIAL IV SCH ×2 (09:00→20:33)
[2019-03-26] MEDS ORDERED: BACTERIOSTATIC SODIUM CHLORIDE 0.9% 30ML VIAL IJ ONE (10:35)
[2019-03-26] MEDS: INSULIN GLARGINE UD 100 UNITS/ML SYR SUBCUT SCH ×2 (11:40→21:34)
[2019-03-26] MEDS ORDERED: FENTANYL CITRATE/PF 50MCG/ML 2ML VIAL ONE (14:44)
[2019-03-26] MEDS ORDERED: MIDAZOLAM HCL 5 MG/5 ML VIAL ONE (14:44)
[2019-03-26] MEDS ORDERED: FENTANYL CITRATE/PF 50MCG/ML 2ML VIAL IV PRN (14:48)
[2019-03-26] MEDS ORDERED: MIDAZOLAM HCL 5 MG/5 ML VIAL IV PRN (14:49)
[2019-03-26] MEDS: ASPIRIN 81MG EC TABLET PO SCH (16:50)
[2019-03-26] MEDS: METOPROLOL TARTRATE 25MG TABLET PO SCH ×2 (16:51→21:04)
[2019-03-26] MEDS: ATORVASTATIN CALCIUM 40MG TABLET PO SCH (21:04)
[2019-03-27] VITALS (12 sets, daily range): BP systolic 139–173; BP diastolic 74–99
[2019-03-27] MEDS: BLOOD SUGAR DIAGNOSTIC STRIP TEST SCH ×4 (01:00→18:21)
[2019-03-27] MEDS: INSULIN LISPRO 100 UNITS/ML SUBCUT SCH ×4 (01:17→18:21)
[2019-03-27] MEDS: DEXT 5%/0.45% NACL 1000ML 1,000 ML IV SCH ×2 (01:20→10:39)
[2019-03-27] MEDS: METOCLOPRAMIDE HCL 10MG/2ML VIAL IV SCH ×4 (01:29→18:20)
[2019-03-27] MEDS: PIPERACILLIN/TAZ 3.375G PREMIX 50 ML IV SCH ×4 (01:29→18:20)
[2019-03-27] MEDS: VANCOMYCIN 1250MG in DEXTROSE 5% WATER 250ML IV SCH ×3 (01:33→17:27)
[2019-03-27] MEDS: SODIUM CHLORIDE 0.9% INJ 3ML FLUSH IVF SCH ×3 (06:23→21:57)
[2019-03-27] MEDS: HYDRALAZINE 20MG/ML VIAL IV PRN ×2 (06:33→18:32)
[2019-03-27] MEDS: METOPROLOL TARTRATE 25MG TABLET PO SCH ×2 (08:23→21:55)
[2019-03-27] MEDS: PANTOPRAZOLE SODIUM 40 MG/VIAL IV SCH ×2 (08:23→21:55)
[2019-03-27] MEDS: ASPIRIN 81MG EC TABLET PO SCH (08:23)
[2019-03-27 10:13] LABS: CHLORIDE 102 mEq/L (98-107)
[2019-03-27] MEDS: INSULIN GLARGINE UD 100 UNITS/ML SYR SUBCUT SCH ×2 (10:38→21:56)
[2019-03-27] MEDS: ATORVASTATIN CALCIUM 40MG TABLET PO SCH (21:55)
[2019-03-28] VITALS (11 sets, daily range): BP systolic 111–164; BP diastolic 62–95
[2019-03-28] MEDS: PIPERACILLIN/TAZ 3.375G PREMIX 50 ML IV SCH ×4 (00:21→18:04)
[2019-03-28] MEDS: VANCOMYCIN 1250MG in DEXTROSE 5% WATER 250ML IV SCH ×3 (00:21→16:43)
[2019-03-28] MEDS: METOCLOPRAMIDE HCL 10MG/2ML VIAL IV SCH ×4 (00:22→18:04)
[2019-03-28] MEDS: HYDRALAZINE 20MG/ML VIAL IV PRN ×2 (00:22→06:26)
[2019-03-28] MEDS: BLOOD SUGAR DIAGNOSTIC STRIP TEST SCH ×4 (00:39→18:05)
[2019-03-28] MEDS: DEXT 5%/0.45% NACL 1000ML 1,000 ML IV SCH ×2 (00:42→14:29)
[2019-03-28] MEDS: INSULIN LISPRO 100 UNITS/ML SUBCUT SCH ×4 (00:43→18:05)
[2019-03-28] MEDS: SODIUM CHLORIDE 0.9% INJ 3ML FLUSH IVF SCH ×2 (06:02→14:29)
[2019-03-28 06:25] LABS: HEMATOCRIT. 40.6 % (42.0-52.0); HEMOGLOBIN. 13.7 g/dL (14.0-18.0); MEAN CORPUSCULAR HEMOGLOBIN 28.8 pg (28.0-32.0); MEAN CORPUSCULAR VOLUME 85.2 fL (80.0-94.0); MEAN PLATELET VOLUME 9.5 fl (7.4-10.4); PLATELET 258 x1000/uL (130-400); RED BLOOD CELL COUNT 4.77 mill/uL (4.7-6.1); RED CELL DISTRIBUTION WIDTH 13.9 % (11.6-14.6)
[2019-03-28 06:30] LABS: CHLORIDE 102 mEq/L (98-107)
[2019-03-28] MEDS: PANTOPRAZOLE SODIUM 40 MG/VIAL IV SCH (08:00)
[2019-03-28] MEDS: METOPROLOL TARTRATE 25MG TABLET PO SCH (08:01)
[2019-03-28] MEDS ORDERED: ASPIRIN 81MG TABLET PEG SCH (09:00)
[2019-03-28] MEDS: INSULIN GLARGINE UD 100 UNITS/ML SYR SUBCUT SCH (10:16)
[2019-03-28 16:10] LABS: PLATELET ESTIMATE NORMAL
== END 2019-03-28 19:30 | DRG 52 ==
LOC: ER 00:43 → 3WST 03:00 → EDBEDREQTM 03:04 → EDBEDREQ 03:04 → ENRESERV 07:11
PROVIDERS: ADMIT Internal Medicine; ATTEND Internal Medicine
PROC: 4A00X4Z Measurement of Central Nervous Electrical Activity, External Approach (ICD-10-PCS; principal; 2019-03-19)
PROC: 0DH63UZ Insertion of Feeding Device into Stomach, Percutaneous Approach (ICD-10-PCS; 2019-03-26)
DX: G93.41 Metabolic encephalopathy (principal); I63.9 Cerebral infarction, unspecified; K92.0 Hematemesis; E46 Unspecified protein-calorie malnutrition; K29.71 Gastritis, unspecified, with bleeding; R65.10 Systemic inflammatory response syndrome (SIRS) of non-infectious origin without acute organ dysfunction; E87.0 Hyperosmolality and hypernatremia; E87.2 Acidosis; E11.65 Type 2 diabetes mellitus with hyperglycemia; E87.1 Hypo-osmolality and hyponatremia; R00.0 Tachycardia, unspecified; R13.12 Dysphagia, oropharyngeal phase; E78.5 Hyperlipidemia, unspecified; E87.6 Hypokalemia; I10 Essential (primary) hypertension; K29.70 Gastritis, unspecified, without bleeding; Z79.02 Long term (current) use of antithrombotics/antiplatelets; Z79.4 Long term (current) use of insulin; Z79.899 Other long term (current) drug therapy; Z93.1 Gastrostomy status; Z68.37 Body mass index [BMI] 37.0-37.9, adult
CPT/HCPCS: 36415; 70551; 71045; 74018; 80048; 80061; 80202; 82010; 82140; 82270; 82550; 82553; 82947; 82962; 83605; 83735; 84132; 84484; 85014; 85018; 92610; 93005; 96372; 96374; 96375; 97110; 97112; 97163; 97166; 97530; 99291; C1893; C9113; J0360; J1650; J1815; J2250; J2405; J2543; J2765; J3010; J3370; J3480; J3490; J7040; J7050; J7060